=== PATIENT | female | born 1975 | race Caucasian/White ===

== ENCOUNTER 2017-08-30 10:09 | Emergency (ER) | payer OTHER ==
[~2017-08-30] VITALS: Ht 162.6 cm; Wt 79.8 kg
[2017-08-30 10:10] VITALS: BP_SYST 130
[2017-08-30 10:40] LABS: BILIRUBIN,URINE NEGATIVE (NEGATIVE); BLOOD, URINE NEGATIVE (NEGATIVE); CLARITY/URINE CLEAR (CLEAR); COLOR,URINE YELLOW (YELLOW); GLUCOSE,URINE NEGATIVE (NEGATIVE); KETONES,URINE NEGATIVE (NEGATIVE); LEUKOCYTE ESTERASE ,URINE NEGATIVE (NEGATIVE); NITRITE, URINE NEGATIVE (NEGATIVE); PH,URINE 5.5 (5.0-8.0); PROTEIN URINE NEGATIVE (NEGATIVE); UROBILINOGEN,URINE 0.2 (0.2-1.0)
[2017-08-30 13:14] VITALS: BP_SYST 130
== END 2017-08-30 13:14 | disposition home or self-care (01) ==
LOC: SED 10:09
DX: K58.9 Irritable bowel syndrome, unspecified (principal); K59.00 Constipation, unspecified; N83.209 Unspecified ovarian cyst, unspecified side; Z98.51 Tubal ligation status
CPT/HCPCS: 76830-TC; 76857; 81003; 81025; 87210-TC; 99285